=== PATIENT | male | born 1980 | race Caucasian/White ===

== ENCOUNTER 2025-04-22 21:54 | Inpatient (IN) | payer BC ==
[2025-04-22] MEDS ORDERED: dilTIAZem 25 MG/5 ML VIAL ONE (22:43)
[2025-04-22 23:06] LABS: #Basophils 0.05 10x3/uL (0.0-0.2); #Eosinophils 0.20 10x3/uL (0.0-0.7); #Monocytes 0.69 10x3/uL (0.11-0.59); #Neutrophils 4.00 10x3/uL (1.40-6.50); %Basophils 0.7 % (0.0-1.0); %Eosinophils 2.8 % (0.0-10.0); %Lymphocytes 29.5 % (21.0-51.0); %Monocytes 9.8 % (0.0-10.0); %Neutrophils 56.6 % (42.0-75.0); Hematocrit 42.7 % (42.0-52.0); Hemoglobin 15.1 g/dL (14.0-18.0); Mean Corpuscular Hemoglobin 29.2 pg (27.0-31.0); Mean Corpuscular Volume 82.4 fL (78.0-98.0); Platelet Count 212 10x3/uL (130-400); Red Blood Cell (RBC) Count 5.18 mill/uL (4.70-6.10); White Blood Cell (WBC) Count 7.06 10x3/uL (4.8-10.8)
[2025-04-22] MEDS ORDERED: Calcium Carbonate 500 MG ChewTAB PO PRN (23:15)
[2025-04-22] MEDS ORDERED: Ondansetron PF 4 MG/2 ML Vial IVP PRN (23:15)
[2025-04-22] MEDS ORDERED: Acetaminophen 325 MG TAB PO PRN (23:15)
[2025-04-22] MEDS ORDERED: Electrolyte Replacement Protocol 1 EACH FS SCH (23:15)
[2025-04-22] MEDS ORDERED: Guaifenesin DM 100-10/5 ML UDCUP PO PRN (23:15)
[2025-04-22 23:20] LABS: ALT (SGPT) 39 U/L (Less than 45); AST (SGOT) 20 U/L (11-34); Albumin 4.3 g/dL (3.1-4.5); Alkaline Phosphatase 61 U/L (40-110); Anion Gap 13 mmol/L (10-20); BUN (Urea Nitrogen) 9 mg/dL (8.9-20.6); Bilirubin, Total 0.4 mg/dL (0.3-1.2); Calc. Creatinine Clearance 0 mL/min (70-130); Calcium 9.8 mg/dL (7.8-10.44); Carbon Dioxide 24 mmol/L (22-29); Chloride 111 mmol/L (98-107); Globulin 2.1 g/dL (2.4-3.5); Glucose 119 mg/dL (70-105); Potassium 3.9 mmol/L (3.5-5.1); Sodium 144 mmol/L (136-145)
[2025-04-22] MEDS ORDERED: Potassium Chloride 20 MEQ in Premix 1 BAG IVPB PRN (23:30)
[2025-04-22] MEDS ORDERED: PHOS-NAK 1 PKT PACK PO PRN (23:30)
[2025-04-22] MEDS ORDERED: Magnesium Sulfate In Water 4 GM in Premix 1 BAG IVPB PRN (23:30)
[2025-04-23 00:13] VITALS: BMI 32.9
[2025-04-23 04:32] LABS: #Basophils 0.05 10x3/uL (0.0-0.2); #Eosinophils 0.20 10x3/uL (0.0-0.7); #Monocytes 0.65 10x3/uL (0.11-0.59); #Neutrophils 3.46 10x3/uL (1.40-6.50); %Basophils 0.8 % (0.0-1.0); %Eosinophils 3.0 % (0.0-10.0); %Lymphocytes 33.9 % (21.0-51.0); %Monocytes 9.8 % (0.0-10.0); %Neutrophils 51.9 % (42.0-75.0); Hematocrit 41.8 % (42.0-52.0); Hemoglobin 14.6 g/dL (14.0-18.0); Mean Corpuscular Hemoglobin 29.5 pg (27.0-31.0); Mean Corpuscular Volume 84.4 fL (78.0-98.0); Platelet Count 206 10x3/uL (130-400); Red Blood Cell (RBC) Count 4.95 mill/uL (4.70-6.10); White Blood Cell (WBC) Count 6.66 10x3/uL (4.8-10.8)
[2025-04-23] MEDS: Diltiazem HCl/D5W 125 MG in Premix 1 BAG IVPB SCH (04:47)
[2025-04-23 04:51] LABS: Anion Gap 12 mmol/L (10-20); BUN (Urea Nitrogen) 9 mg/dL (8.9-20.6); Calc. Creatinine Clearance 146 mL/min (70-130); Calcium 9.0 mg/dL (7.8-10.44); Carbon Dioxide 25 mmol/L (22-29); Chloride 110 mmol/L (98-107); Glucose 100 mg/dL (70-105); Magnesium 2.1 mg/dL (1.6-2.6); Potassium 3.9 mmol/L (3.5-5.1); Sodium 143 mmol/L (136-145)
[2025-04-23] MEDS: Pantoprazole 40 MG DR.TAB PO SCH (10:09)
[2025-04-23] MEDS: Enoxaparin 40 MG (0.4 mL) SYRINGE SC SCH (10:09)
[2025-04-23] MEDS: dilTIAZem 30 MG TAB PO SCH (13:26)
[2025-04-23] MEDS: Amiodarone 150 MG, Admixture Fee 1 EACH in Dextrose 5% in Water 100 ML IVPB SCH (15:41)
[2025-04-23] MEDS: Hyaluronidase, Human Recomb. 150 UNITS/ML VIAL SC SCH (21:40)
[2025-04-24] MEDS: Amiodarone 200 MG TAB PO SCH ×2 (04:46→09:24)
[2025-04-24 04:52] LABS: Cardiac Risk 4.2 (Less than 4.5); Cholesterol 173.0 mg/dl (< 200 Desired); HDL Cholesterol 41.0 mg/dL (>60 Neg Risk); LDL Cholesterol, Calculated 109.0 mg/dL; Triglycerides 113.0 mg/dL (Less than 150)
[2025-04-24 09:21] VITALS: BP 111/75; TEMP 98
[2025-04-24] MEDS: Aspirin 81 mg Enteric Coated Tablet PO SCH (09:24)
[2025-04-24] MEDS: Apixaban 5 MG TAB PO SCH (09:24)
[2025-04-26] MEDS ORDERED: FLU (Fluarix Triv) 25-26 (6MOS UP)/PF 45 MCG/0.5 ML Syringe IM ONE (09:00)
== END 2025-04-24 10:51 | disposition home or self-care (01) | DRG 310 ==
LOC: ERS 21:54 → PCU 23:18 → OBSVTOIN 04-23 10:39
PROVIDERS: ADMIT Internal Medicine; ATTEND Family Medicine
DX: I48.0 Paroxysmal atrial fibrillation (principal); F10.90 Alcohol use, unspecified, uncomplicated; Z82.49 Family history of ischemic heart disease and other diseases of the circulatory system
CPT/HCPCS: 36415; 71045; 80048; 80053; 80061; 83735; 84100; 84443; 84484; 85025; 93005; 93306; 96372; 96374; 96375; 96376; G0378; J0282; J1650; J3473; J7070